=== PATIENT | male | born 1945 | race African-American/Black ===

== ENCOUNTER 2020-06-27 09:22 | Emergency (ER) | payer BC ==
[~2020-06-27] VITALS: Ht 177.8 cm; Wt 96.0 kg
[2020-06-27] MEDS ORDERED: CARBAMIDE PEROXIDE 6.5% OTIC SOLN 15ML EACH EAR ONE (10:30)
[2020-06-27 11:22] VITALS: BP 151/73
== END 2020-06-27 11:23 | disposition home or self-care (01) ==
LOC: ER 09:22
DX: H61.23 Impacted cerumen, bilateral (principal)
CPT/HCPCS: 99281

== ENCOUNTER 2024-08-23 13:59 | Emergency (ER) | payer BC, MEDICARE, OTHER ==
[~2024-08-23] VITALS: Ht 175.3 cm; Wt 68.0 kg
[2024-08-23 14:05] VITALS: O2SAT 100
[2024-08-23] MEDS: SODIUM CHLORIDE 0.9% 1,000 ML IV ONE (16:42)
[2024-08-23 19:14] LABS: BASOPHILS % 0.4 % (0.0-2.0); EOSINOPHILS % 0.1 % (0.0-5.0); HEMATOCRIT. 44.1 % (42.0-52.0); HEMOGLOBIN. 14.5 g/dL (14.0-18.0); LYMPHOCYTES % 13.6 % (20.0-50.0); MEAN CORPUSCULAR HEMOGLOBIN 29.5 pg (28.0-32.0); MEAN CORPUSCULAR HGB CONC 32.8 g/dL (31.0-37.0); MEAN CORPUSCULAR VOLUME 89.9 fL (80.0-94.0); MONOCYTES % 6.8 % (2.0-8.0); NEUTROPHILS % 79.1 % (40.0-76.0); PLATELET 177 x1000/uL (130-400); RED CELL DISTRIBUTION WIDTH 16.1 % (11.6-14.6); WHITE BLOOD COUNT 10.2 x1000/uL (4.5-11.0)
[2024-08-23 19:24] LABS: CHLORIDE 114 mEq/L (98-107); POTASSIUM 3.6 mEq/L (3.5-5.1); SODIUM 147 mEq/L (136-145)
[2024-08-23 19:25] LABS: CALCIUM 9.2 mg/dL (8.7-10.4); CARBON DIOXIDE 23 mEq/L (21-32)
[2024-08-23 19:29] LABS: INR 1.7
[2024-08-23 19:30] LABS: CREATININE 0.8 mg/dL (0.6-1.3); GLUCOSE 138 mg/dL (70-105); UREA NITROGEN BLOOD 15 mg/dL (9-23)
[2024-08-23 19:32] LABS: ALANINE AMINOTRANSFERASE 66 IU/L (10-49); ALBUMIN 3.6 g/dL (3.2-4.8); ASPARTATE AMINOTRANSFERASE 44 IU/L (<34); BILIRUBIN DIRECT 0.5 mg/dL (<=3.0); BILIRUBIN TOTAL 1.1 mg/dL (0.1-1.0)
[2024-08-23 19:33] LABS: PROTEIN TOTAL 6.6 g/dL (6.0-8.3)
[2024-08-23] MEDS ORDERED: ONDA-239 PO (19:46)
[2024-08-23 20:59] VITALS: BP 134/86; PULSE 86; RESP 16; TEMP 36.94740; O2SAT 100
== END 2024-08-23 21:00 | disposition home or self-care (01) ==
LOC: ER 14:25 → EDBEDREQ 19:45 → ER 21:00
DX: R53.1 Weakness (principal); R53.83 Other fatigue
CPT/HCPCS: 99283; 96360; 80076; 80048; 85025; 85610; 36415; J7030

== ENCOUNTER 2024-08-26 10:18 | Inpatient (IN) | payer OTHER ==
[~2024-08-26] VITALS: Ht 175.3 cm; Wt 82.7 kg
[~2024-08-26 10:18] MED LIST: ONDA-239 PO
[2024-08-26 11:25] LABS: BASOPHILS % 0.1 % (0.0-2.0); DIFFERENTIAL COMMENT 0; EOSINOPHILS % 0.1 % (0.0-5.0); HEMATOCRIT. 48.4 % (42.0-52.0); HEMOGLOBIN. 15.1 g/dL (14.0-18.0); LYMPHOCYTES % 14.2 % (20.0-50.0); MEAN CORPUSCULAR HEMOGLOBIN 28.5 pg (28.0-32.0); MEAN CORPUSCULAR HGB CONC 31.2 g/dL (31.0-37.0); MEAN CORPUSCULAR VOLUME 91.3 fL (80.0-94.0); MEAN PLATELET VOLUME 9.6 fl (7.4-10.4); MONOCYTES % 6.4 % (2.0-8.0); NEUTROPHILS % 79.2 % (40.0-76.0); PLATELET 169 x1000/uL (130-400); RED CELL DISTRIBUTION WIDTH 16.1 % (11.6-14.6); WHITE BLOOD COUNT 10.6 x1000/uL (4.5-11.0)
[2024-08-26 11:28] LABS: CHLORIDE 114 mEq/L (98-107); POTASSIUM 4.6 mEq/L (3.5-5.1); SODIUM 151 mEq/L (136-145)
[2024-08-26 11:29] LABS: CALCIUM 9.4 mg/dL (8.7-10.4); CARBON DIOXIDE 28 mEq/L (21-32)
[2024-08-26 11:32] LABS: INR 1.7; PROTHROMBIN TIME 18.6 sec (9.6-11.0)
[2024-08-26 11:34] LABS: CREATININE 0.9 mg/dL (0.6-1.3); GLUCOSE 111 mg/dL (70-105); UREA NITROGEN BLOOD 16 mg/dL (9-23)
[2024-08-26 11:40] LABS: THYROID STIMULATING HORMONE 2.21 uIU/mL (0.55-4.78)
[2024-08-26 11:47] LABS: TROPONIN I HIGH SENSITIVITY 471 ng/L (3.0-53)
[2024-08-26] MEDS: CLOPIDOGREL 75MG TABLET PO ONE (13:21)
[2024-08-26] MEDS: ASPIRIN 325MG EC TABLET PO ONE (13:22)
[2024-08-26] MEDS ORDERED: ONDANSETRON HCL 4MG/2ML INJ IV PRN (15:00)
[2024-08-26] MEDS ORDERED: IPRATROPIUM/ALBUTEROL 0.5-3(2.5)MG/3ML NEB NEB PRN (15:00)
[2024-08-26] MEDS ORDERED: NALOXONE HCL 0.4MG/ML VIAL IV PRN (15:00)
[2024-08-26] MEDS ORDERED: MORPHINE SULFATE 2 MG/ML INJ (NOT FOR IM USE) IV PRN (15:00)
[2024-08-26] MEDS ORDERED: LORAZEPAM 2MG/ML INJ IV PRN (15:00)
[2024-08-26 15:29] LABS: BG BASE EXCESS -1.2 mmol/L (-2.0-3.0); BG CARBOXYHEMOGLOBIN 0.8 % (0.5-1.5); BG DEOXYHEMOGLOBIN 3.3 % (0.0-5.0); BG HCO3 ACT 19.3 mmol/L (21.0-28.0); BG OXYGEN SATURATION 96.7 % (94.0-98.0); BG OXYHEMOGLOBIN 95.9 % (94.0-98.0); BG PCO2 23.6 mmHg (35.0-48.0); BG PO2 77.4 mmHg (83.0-108.0); BG SAMPLE SITE RIGHT BRACHIAL; BG TOTAL HEMOGLOBIN 16.3 g/dL (13.5-17.5); BG VENT MODE ROOM AIR
[2024-08-26 15:30] VITALS: BP_SYST 127; BP_DIAS 73; BP_DIAS 79; PULSE 81; PULSE 86; RESP 20; TEMP 36.44736; TEMP 36.7516; O2SAT 99
[2024-08-26] MEDS: FUROSEMIDE 40MG/4ML VIAL IVP NR (16:57)
[2024-08-26] MEDS: ENOXAPARIN 80MG/0.8ML SYR SUBCUT SCH (16:57)
[2024-08-26] MEDS: PANTOPRAZOLE SODIUM 40 MG/VIAL IV SCH (16:59)
[2024-08-26 20:00] VITALS: BP 109/83; PULSE 65; RESP 18; TEMP 36.22512; O2SAT 98
[2024-08-26] MEDS: METOPROLOL TARTRATE 25MG TABLET PO SCH (21:00)
[2024-08-26 21:31] LABS: TROPONIN I HIGH SENSITIVITY 526 ng/L (3.0-53)
[2024-08-27] VITALS: BP 112/86; PULSE 76; RESP 18; TEMP 36.00288; O2SAT 98
[2024-08-27 04:00] VITALS: BP 123/70; PULSE 72; RESP 18; TEMP 36.22512; O2SAT 98
[2024-08-27 05:49] LABS: BASOPHILS % 0.2 % (0.0-2.0); DIFFERENTIAL COMMENT 0; EOSINOPHILS % 0.1 % (0.0-5.0); HEMATOCRIT. 49.2 % (42.0-52.0); HEMOGLOBIN. 15.4 g/dL (14.0-18.0); LYMPHOCYTES % 17.8 % (20.0-50.0); MEAN CORPUSCULAR HEMOGLOBIN 28.2 pg (28.0-32.0); MEAN CORPUSCULAR HGB CONC 31.2 g/dL (31.0-37.0); MEAN CORPUSCULAR VOLUME 90.2 fL (80.0-94.0); MEAN PLATELET VOLUME 9.6 fl (7.4-10.4); MONOCYTES % 6.8 % (2.0-8.0); NEUTROPHILS % 75.1 % (40.0-76.0); PLATELET 172 x1000/uL (130-400); RED BLOOD CELL COUNT 5.46 mill/uL (4.7-6.1); WHITE BLOOD COUNT 10.3 x1000/uL (4.5-11.0)
[2024-08-27 06:23] LABS: CHLORIDE 114 mEq/L (98-107); POTASSIUM 4.5 mEq/L (3.5-5.1); SODIUM 153 mEq/L (136-145)
[2024-08-27 06:27] LABS: CALCIUM 9.5 mg/dL (8.7-10.4); CARBON DIOXIDE 31 mEq/L (21-32)
[2024-08-27 06:29] LABS: CREATINE KINASE MB FRACTION 3.2 ng/mL (0.5-3.6)
[2024-08-27] MEDS: ENOXAPARIN 80MG/0.8ML SYR SUBCUT SCH (06:29)
[2024-08-27 06:32] LABS: ALANINE AMINOTRANSFERASE 39 IU/L (10-49); ALBUMIN 3.6 g/dL (3.2-4.8); CREATININE 0.9 mg/dL (0.6-1.3); GLUCOSE 106 mg/dL (70-105); UREA NITROGEN BLOOD 16 mg/dL (9-23)
[2024-08-27 06:34] LABS: ASPARTATE AMINOTRANSFERASE 30 IU/L (<34); BILIRUBIN DIRECT 0.5 mg/dL (<=3.0); BILIRUBIN TOTAL 1.1 mg/dL (0.1-1.0); PROTEIN TOTAL 6.6 g/dL (6.0-8.3)
[2024-08-27 08:32] VITALS: BP 143/85; PULSE 59; RESP 20; TEMP 36.00288; O2SAT 96
[2024-08-27] MEDS: LOSARTAN 25 MG TABLET PO SCH (09:30)
[2024-08-27] MEDS: FUROSEMIDE 40MG TABLET PO SCH (09:30)
[2024-08-27] MEDS: ASPIRIN 81MG TABLET PO SCH (09:31)
[2024-08-27 12:22] VITALS: BP 179/86; PULSE 63; RESP 20; TEMP 36.61404; O2SAT 97
[2024-08-27 16:23] LABS: CREATINE KINASE MB FRACTION 3.6 ng/mL (0.5-3.6)
[2024-08-27 16:40] VITALS: BP 114/85; PULSE 64; RESP 18; TEMP 36.61404; O2SAT 99
[2024-08-27 20:00] VITALS: BP 108/67; PULSE 67; RESP 20; TEMP 36.72516; O2SAT 98
[2024-08-28] VITALS: BP 111/65; PULSE 62; RESP 14; TEMP 36.22512; O2SAT 98
[2024-08-28 04:00] VITALS: BP 138/78; PULSE 78; RESP 16; TEMP 36.61404; O2SAT 100
[2024-08-28 06:20] LABS: CHLORIDE 112 mEq/L (98-107); POTASSIUM 3.4 mEq/L (3.5-5.1); SODIUM 150 mEq/L (136-145)
[2024-08-28 06:21] LABS: CALCIUM 9.3 mg/dL (8.7-10.4); CARBON DIOXIDE 28 mEq/L (21-32)
[2024-08-28 06:26] LABS: CREATININE 0.8 mg/dL (0.6-1.3); GLUCOSE 102 mg/dL (70-105); UREA NITROGEN BLOOD 17 mg/dL (9-23)
[2024-08-28 07:46] LABS: INR 1.6; PROTHROMBIN TIME 16.8 sec (9.6-11.0)
[2024-08-28 07:55] LABS: HEMATOCRIT 45.8 % (42.0-52.0); HEMOGLOBIN 14.9 g/dL (14.0-18.0); MEAN CORPUSCULAR HEMOGLOBIN 29.5 pg (28.0-32.0); MEAN CORPUSCULAR HGB CONC 32.6 g/dL (31.0-37.0); MEAN CORPUSCULAR VOLUME 90.4 fL (80.0-94.0); PLATELET 186 x1000/uL (130-400); RED BLOOD CELL COUNT 5.06 mill/uL (4.7-6.1); RED CELL DISTRIBUTION WIDTH 16.3 % (11.6-14.6); WHITE BLOOD COUNT 10.3 x1000/uL (4.5-11.0)
[2024-08-28] MEDS ORDERED: LIDOCAINE HCL 1% 10 MG/ML 10ML VIAL ONE (10:00)
[2024-08-28] MEDS ORDERED: IOHEXOL-350 100 ML BOTTLE ONE (11:19)
[2024-08-28 12:00] VITALS: BP 122/94; PULSE 52; RESP 18; TEMP 37.00296; O2SAT 98
[2024-08-28 16:49] VITALS: BP 109/73; PULSE 93; RESP 20; TEMP 36.61404; O2SAT 99
[2024-08-28 20:00] VITALS: BP 111/73; PULSE 55; RESP 17; TEMP 36.44736; O2SAT 97
[2024-08-29] VITALS: BP 118/78; PULSE 62; RESP 18; TEMP 36.55848; O2SAT 98
[2024-08-29 04:00] VITALS: BP 129/74; PULSE 94; RESP 20; TEMP 36.61404; O2SAT 97
[2024-08-29 08:00] VITALS: BP 130/73; PULSE 89; RESP 18; TEMP 36.28068; O2SAT 98
[2024-08-29 09:13] LABS: POTASSIUM 3.7 mEq/L (3.5-5.1)
[2024-08-29 12:00] VITALS: BP 126/75; PULSE 93; RESP 19; TEMP 36.55848; O2SAT 97
[2024-08-29 16:00] VITALS: BP 133/86; PULSE 88; RESP 18; TEMP 36.78072; O2SAT 98
[2024-08-29 20:00] VITALS: BP 119/72; PULSE 86; RESP 19; TEMP 36.9474; O2SAT 96
[2024-08-29] MEDS: ATORVASTATIN CALCIUM 40MG TABLET PO SCH (20:25)
[2024-08-30] VITALS: BP 119/69; PULSE 96; RESP 20; TEMP 36.6696; O2SAT 95
[2024-08-30 04:00] VITALS: BP 125/67; PULSE 99; RESP 20; TEMP 36.3918; O2SAT 99
[2024-08-30 08:00] VITALS: BP 126/53; PULSE 89; RESP 18; TEMP 37.00296; O2SAT 100
[2024-08-30 08:40] LABS: BASOPHILS % 0.1 % (0.0-2.0); EOSINOPHILS % 0.2 % (0.0-5.0); HEMATOCRIT. 47.6 % (42.0-52.0); HEMOGLOBIN. 15.2 g/dL (14.0-18.0); LYMPHOCYTES % 24.4 % (20.0-50.0); MEAN CORPUSCULAR HEMOGLOBIN 28.6 pg (28.0-32.0); MEAN CORPUSCULAR VOLUME 89.6 fL (80.0-94.0); MEAN PLATELET VOLUME 10.2 fl (7.4-10.4); NEUTROPHILS % 67.3 % (40.0-76.0); PLATELET 212 x1000/uL (130-400); RED BLOOD CELL COUNT 5.32 mill/uL (4.7-6.1); RED CELL DISTRIBUTION WIDTH 16.3 % (11.6-14.6); WHITE BLOOD COUNT 10.6 x1000/uL (4.5-11.0)
[2024-08-30 08:58] LABS: CARBON DIOXIDE 27 mEq/L (21-32); CHLORIDE 109 mEq/L (98-107); POTASSIUM 3.5 mEq/L (3.5-5.1); SODIUM 149 mEq/L (136-145)
[2024-08-30 08:59] LABS: CALCIUM 9.2 mg/dL (8.7-10.4)
[2024-08-30 09:04] LABS: CREATININE 0.9 mg/dL (0.6-1.3); GLUCOSE 101 mg/dL (70-105); TRIGLYCERIDE 87 mg/dL (0-150); UREA NITROGEN BLOOD 14 mg/dL (9-23)
[2024-08-30 09:05] LABS: LDL CHOLESTEROL 111 mg/dL (5-100)
[2024-08-30 09:06] LABS: CHOLESTEROL 150 mg/dL (<200); HDL CHOLESTEROL 27 mg/dL (>55); PHOSPHORUS 3.2 mg/dL (2.5-4.9)
[2024-08-30 12:00] VITALS: BP 114/61; PULSE 79; RESP 20; TEMP 36.114; O2SAT 96
[2024-08-30 16:00] VITALS: BP 121/88; PULSE 55; RESP 20; TEMP 36.16956; O2SAT 96
[2024-08-30 17:41] VITALS: BP 121/88; PULSE 92; TEMP 97.1; O2SAT 96
== END 2024-08-30 18:29 | DRG 280 ==
LOC: ER 10:28 → EDBEDREQTM 11:43 → EDBEDREQ 11:43 → 7WST 15:52
PROVIDERS: ADMIT Internal Medicine; ATTEND Internal Medicine
PROC: 05H933Z Insertion of Infusion Device into Right Brachial Vein, Percutaneous Approach (ICD-10-PCS; principal; 2024-08-28)
PROC: B54MZZA Ultrasonography of Right Upper Extremity Veins, Guidance (ICD-10-PCS; 2024-08-28)
DX: I11.0 Hypertensive heart disease with heart failure (principal); G93.41 Metabolic encephalopathy; I21.4 Non-ST elevation (NSTEMI) myocardial infarction; I63.9 Cerebral infarction, unspecified; I50.23 Acute on chronic systolic (congestive) heart failure; E87.0 Hyperosmolality and hypernatremia; I82.412 Acute embolism and thrombosis of left femoral vein; I82.442 Acute embolism and thrombosis of left tibial vein; G91.9 Hydrocephalus, unspecified; Z20.822 Contact with and (suspected) exposure to COVID-19; I51.3 Intracardiac thrombosis, not elsewhere classified; I49.3 Ventricular premature depolarization; Z86.73 Personal history of transient ischemic attack (TIA), and cerebral infarction without residual deficits; Z91.199 Patient's noncompliance with other medical treatment and regimen due to unspecified reason; Z79.899 Other long term (current) drug therapy
CPT/HCPCS: 36415; 36573; 36600; 70551; 71045; 71275; 80048; 80061; 80076; 82375; 82550; 82553; 82805; 83735; 83880; 84100; 84132; 84145; 84443; 84484; 85025; 85027; 85379; 87426; 92523; 93005; 93306; 93880; 93970; 97116; 97162; 97166; 97535; 99285; C1725; C1893; J1650; J1940; J2470; J3490; Q9967